=== PATIENT | female | born 1980 | race African-American/Black ===

== ENCOUNTER → 2021-08-20 | Emergency (ER) | payer MEDICAID ==
[~2021-08-20] VITALS: Ht 170.2 cm; Wt 118.0 kg
[~2021-08-20] MED LIST: DOXY-326 PO; LIDOCAINE HCL/PF 1% 10 MG/ML 5ML VIAL INFIL NR
[2021-08-20 23:45] VITALS: BP 122/82
[2021-08-21 00:07] LABS: CLARITY URINE CLEAR (CLEAR); COLOR URINE YELLOW (YELLOW); KETONES URINE NEGATIVE (NEGATIVE); LEUKOCYTE ESTERASE URINE NEGATIVE (NEGATIVE); NITRITE URINE NEGATIVE (NEGATIVE); OCCULT BLOOD URINE NEGATIVE (NEGATIVE); PROTEIN URINE NEGATIVE (NEGATIVE); SPECIFIC GRAVITY URINE 1.016 (1.005-1.030); UROBILINOGEN URINE 0.2 E.U./dL (0.2-1.0)
[2021-08-21] MEDS: CEFTRIAXONE SODIUM 500 MG/VIAL IM NR ×2 (02:30→02:56)
[2021-08-23 04:07] LABS: NEISSERIA GONORRHOEAE NAA Negative (Negative)
== END ==
LOC: ER 23:15
DX: N72 Inflammatory disease of cervix uteri (principal); Z98.890 Other specified postprocedural states
CPT/HCPCS: 81003; 87210; 87491; 87591; 96372; 99283; J0696; J3490

== ENCOUNTER 2022-08-19 10:57 | Emergency (ER) | payer BC, MEDICAID ==
[~2022-08-19] VITALS: Ht 170.2 cm; Wt 90.0 kg
[~2022-08-19 10:57] MED LIST changes: -DOXY-326 PO; +DOXY-456 PO; -LIDOCAINE HCL/PF 1% 10 MG/ML 5ML VIAL INFIL NR
[2022-08-19] MEDS ORDERED: LORAZEPAM 2MG/ML CPJ IV ONE (12:00)
[2022-08-19 13:01] LABS: BASOPHILS % 0.6 % (0.0-2.0); EOSINOPHILS % 0.5 % (0.0-5.0); HEMATOCRIT. 30.6 % (36.0-48.0); LYMPHOCYTES % 17.4 % (20.0-50.0); MEAN CORPUSCULAR HEMOGLOBIN 29.2 pg (28.0-32.0); MEAN CORPUSCULAR VOLUME 89.3 fL (81.0-99.0); MEAN PLATELET VOLUME 9.1 fl (7.4-10.4); MONOCYTES % 6.3 % (2.0-8.0); NEUTROPHILS % 75.2 % (40.0-76.0); PLATELET 304 x1000/uL (130-400); RED BLOOD CELL COUNT 3.42 mill/uL (4.2-5.4); RED CELL DISTRIBUTION WIDTH 15.3 % (11.6-14.6)
[2022-08-19 13:03] LABS: HCG SCREEN NEGATIVE
[2022-08-19 13:06] LABS: CHLORIDE 106 mEq/L (98-107)
[2022-08-19] MEDS ORDERED: MEDR10TA MT (13:43)
[2022-08-19] MEDS ORDERED: MEDROXYPROGESTERONE ACET 5MG TABLET PO SCH (13:45)
[2022-08-19] MEDS ORDERED: SODIUM CHLORIDE 0.9% 1,000 ML IV ONE (14:00)
[2022-08-19] MEDS ORDERED: ACETAMINOPHEN 325MG TABLET PO ONE (14:00)
[2022-08-19 14:20] LABS: CLARITY URINE CLOUDY (CLEAR); COLOR URINE ORANGE (YELLOW); KETONES URINE 1+ (NEGATIVE); LEUKOCYTE ESTERASE URINE 1+ (NEGATIVE); NITRITE URINE NEGATIVE (NEGATIVE); OCCULT BLOOD URINE 3+ (NEGATIVE); PH URINE 5.5 (4.5-8.0); PROTEIN URINE 2+ (NEGATIVE); SPECIFIC GRAVITY URINE 1.027 (1.005-1.030)
[2022-08-19 15:23] VITALS: BP 116/72
== END 2022-08-19 15:45 | disposition home or self-care (01) ==
LOC: ER 11:27
DX: N92.1 Excessive and frequent menstruation with irregular cycle (principal); Z98.890 Other specified postprocedural states
CPT/HCPCS: 36415; 76830; 76856; 80053; 81003; 81025; 84703; 85025; 86850; 86900; 86901; 93005; 96361; 96374; 99285; J2060; J7030; Z7610

== ENCOUNTER 2022-09-03 20:41 | Emergency (ER) | payer BC ==
[~2022-09-03] VITALS: Ht 167.6 cm; Wt 100.2 kg
[~2022-09-03 20:41] MED LIST changes: +MEDR10TA MT
[2022-09-03 20:57] VITALS: BP 121/89; PULSE 100; RESP 18; TEMP 98.4; O2SAT 98
[2022-09-03] MEDS ORDERED: TOPUD PO (22:28)
[2022-09-03] MEDS ORDERED: METH-653 MT (22:28)
[2022-09-03] MEDS ORDERED: LIDO1ADH23 TP (22:28)
[2022-09-03] MEDS ORDERED: IBUP-2028 MT (22:28)
[2022-09-03] MEDS ORDERED: HYDROCODONE/ACETAMINOPHEN 5/325MG TABLET PO ONE (22:30)
[2022-09-03] MEDS ORDERED: IBUPROFEN 400MG TABLET PO ONE (22:30)
== END 2022-09-03 23:29 | disposition home or self-care (01) ==
LOC: ER 20:41
DX: M25.551 Pain in right hip (principal); W18.39XA Other fall on same level, initial encounter; Y93.89 Activity, other specified; Y92.89 Other specified places as the place of occurrence of the external cause; Y99.8 Other external cause status; Z98.890 Other specified postprocedural states
CPT/HCPCS: 73522; 99283